=== PATIENT | female | born 1955 | race Caucasian/White ===

== ENCOUNTER → 2017-03-05 | Outpatient (CLI) | payer BC ==
[~2017-03-05] MED LIST: [UNRECOGNIZED DRUG - OTHER]
== END | disposition home or self-care (01) ==
LOC: C.PAPS 14:00
PROVIDERS: ATTEND Obstetrics & Gynecology
DX: Z01.419 Encounter for gynecological examination (general) (routine) without abnormal findings (principal)

== ENCOUNTER → 2017-03-11 | Outpatient (CLI) | payer BC ==
--- NOTE | 2017-03-12 13:37 | MAMMOGRAPHY REPORT ---
BILATERAL DIGITAL SCREENING MAMMOGRAM TOMOSYNTHESIS WITH CAD: 03/11/2017 CLINICAL HISTORY: Routine screening. Patient has no complaints. TECHNIQUE: Breast tomosynthesis in addition to standard 2D mammography was performed. Current study was also evaluated with a Computer Aided Detection (CAD) system. COMPARISON: Comparison is made to exams dated: 03/09/2016 mammogram, 01/29/2015 mammogram, 01/23/2014 mammogram, 01/16/2013 mammogram, 01/12/2012 mammogram, and 01/05/2011 mammogram - [facility]. BREAST COMPOSITION: The tissue of both breasts is heterogeneously dense, which may obscure small mas ses. FINDINGS: No suspicious masses, calcifications, or areas of architectural distortion are noted in ei ther breast. There has been no significant interval change compared to prior exams. A biopsy marker clip is again noted within the left upper outer quadrant. IMPRESSION: ACR BI-RADS CATEGORY 2: BENIGN There is no mammographic evidence of malignancy. A 1 year screening mammogram is recommended. The pa tient will receive written notification of the results. Approximately 10% of breast cancers are not detected with mammography. A negative mammographic report should not delay biopsy if a clinically suggestive mass is present. Nan Raymond M.D. ah/:03/11/2017 15:14:32 Adult Parole Officer: Rosy SPARKS)(Marcos), [facility] letter sent: Normal 1/2 BI-RADS Code: ACR BI-RADS Category 2: Benign
== END | disposition home or self-care (01) ==
LOC: C.MAMM 10:44
PROVIDERS: ATTEND Obstetrics & Gynecology
DX: Z12.31 Encounter for screening mammogram for malignant neoplasm of breast (principal)

== ENCOUNTER → 2017-07-22 | Day surgery (SDC) | payer OTHER ==
[~2017-07-22] VITALS: Ht 172.7 cm; Wt 59.0 kg
[~2017-07-22] MED LIST changes: +CALC500C70 PO; +COSYNTROPIN INJ 250 MCG in SYRINGE 0 ML IM SCH; +probiotic
[2017-07-22 08:05] VITALS: BP 124/85; PULSE 64; TEMP 36.8; O2SAT 98; Ht 172.7 cm; Wt 59.0 kg
== END | disposition home or self-care (01) ==
LOC: C.MTU 07:45
PROVIDERS: ATTEND Family Medicine
DX: E27.40 Unspecified adrenocortical insufficiency (principal)

== ENCOUNTER 2025-02-06 11:52 | Observation (INO) ==
[2025-02-06] MEDS: MoRPHine SULFATE 4 MG/ML 1 ML CARP\\VIAL IV STA ×2 (12:13→12:37)
--- NOTE | 2025-02-06 12:13 | Emergency Department Note ---
Impression & Plan Open fracture of right talus, Dislocation of right subtalar joint ED Provider Note NAME: VALENTINO ESPARZA AGE: 69 SEX: F : 1955 ARRIVES VIA: Ambulance INFORMANT: Patient ED PROVIDER(S): Joselito Dupree DO CHIEF COMPLAINT: Right foot pain HPI: Patient is a 69-year-old female who presents to the ER who rolled her right ankle. She has severe pain over the right lateral ankle. She notes her tetanus is up-to-date. She notes this occurred just prior to arrival. No head strike. No chest pain or shortness of breath. No nausea, vomiting, or diarrhea. ADDITIONAL HISTORY OBTAINED: Per HPI Chronic Medical/Social Conditions Affecting Care: Per HPI PAST MEDICAL HISTORY:See Below PAST SURGICAL HISTORY:See Below FAMILY HISTORY:See Below SOCIAL HISTORY:See Below HOME MEDICATIONS:See Below ALLERGIES:See Below VITALS:See Below PHYSICAL EXAMINATION: GENERAL: Sitting up in bed, alert, moderate distress EYE EXAM: normal conjunctiva. PERRL and EOM's grossly intact. OROPHARYNX: mucous membranes are moist NECK: supple, no nuchal rigidity, no adenopathy, non-tender LUNGS: Clear to auscultation. Normal chest wall mechanics HEART: no murmurs, S1 normal and S2 normal ABDOMEN: abdomen soft, non-tender, normo-active bowel sounds, no masses, no rebound or guarding. UPPER EXTREMITIES: upper extremities are grossly normal. LOWER EXTREMITIES: Flexion extension right hip and knee is intact. Obvious deformity of the right lateral foot with bone exposed just under skin tear. Bruising and swelling present. DP 2 out of 4. Gross station intact. NEURO EXAM: Normal sensorium, cranial nerves II-XII grossly intact, normal speech, no gross weakness of arms, no gross weakness of legs. MEDICAL DECISION MAKING: Patient is a 69-year-old female who presents ER following mechanical fall for right foot pain. On exam she has a clear open fracture of the right lateral foot which appear to be consistent with the talus as it was dislocated. Patient was neurovascularly intact on exam. Initially upon evaluation consulted orthopedics and podiatry. Podiatry Dr. Lucas at the most availability within his schedule and was able to present at bedside and took the patient emergently to the OR. Patient was given IV antibiotics which was IV Ancef in combination with multiple dose of IV morphine. The wound was covered with a moist 4 x 4. Patient was rechecked regularly while in the ER to make sure she was still neurovascularly intact as she remained this way until she was taken to the OR. Consults/Care Managements Discussions: Per [facility] Triage Nursing notes reviewed. Limited review of prior medical records performed Vital Signs: reviewed and remarkable for no significant abnormalities Differential diagnosis: Fracture, subluxation, dislocation, contusion, ligamentous injury, neurovascular, compartment syndrome, rhabdomyolysis, as well as other pathologies. ER treatment provided: See below Diagnostics interpreted by me include EKG and cardiac monitoring as listed below: -Cardiac Monitoring: An order was placed for continuous cardiac monitoring. The monitor shows a rate of 101 with sinus rhythm. -ECG: none -Laboratory studies:Interpreted by me as stated above in MDM and shown below. Imaging studies: Xrays: As interpreted by me: X-rays of the right foot show a likely talus navicular dislocation with a fracture of the fifth metacarpal CTs show: CT as described above Procedures:none Critical Care: None Past Med/Surg History Problem List (Updated 02/06/25 @ 15:49 by Lance Aguilar DPM) Open fracture of right talus Dislocation of right subtalar joint Family history of breast cancer MOM DX TWICE. FIRST AROUND 70/80'S SECOND 80/90'S Heterogeneously dense tissue of both breasts on mammography Excessive cerumen in both ear canals Cellulitis of left breast Medical History Neuropathy Surgical History H/O oral surgery H/O breast biopsy History of sinus surgery History of tonsillectomy Family History Mother Breast cancer Cancer Hearing loss Father Colorectal cancer Diabetes Hypertension Hearing loss Other No family history of allergies No family history of bleeding disorder Denies family history of Heart disease Stroke Asthma Social History Smoking Status: Never smoker Do You Dip or Chew Tobacco: No; Hx Alcohol Use: Yes Alcohol type: wine Hx Substance Use: No Preferred Language: Barbadian Communication Ability: Effective marital status: Current Living Situation: Spouse current occupational status: retired 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 @ [employer] How many Children do You have: 1 Feels Safe at Home: Yes Sunscreen Use: No Allergies Allergies Allergy/AdvReac Type Severity Reaction Status Date / Time No Known Drug Allergies Allergy Verified 02/06/25 15:24 Home Meds Home Medications Medication Instructions Recorded Confirmed duloxetine 30 mg capsule,delayed 60 mg PO DAILY 06/04/22 02/06/25 release metformin 500 mg tablet,extended 500 mg PO TID 06/04/22 02/06/25 release 24 hr alendronate 70 mg tablet See Rx Instructions PO .COMPLEX 08/28/22 02/06/25 alpha lipoic acid 300 mg capsule 300 mg PO BID 08/28/22 02/06/25 cholecalciferol (vitamin D3) 100 100 mcg PO DAILY 08/28/22 02/06/25 mcg (4,000 unit) tablet loratadine 10 mg tablet (Claritin) 10 mg PO DAILY PRN Allergic 06/18/23 02/06/25 Symptoms rosuvastatin 5 mg tablet 5 mg PO DAILY 01/18/24 02/06/25 lisinopril 2.5 mg tablet 2.5 mg PO DAILY 02/06/25 02/06/25 Previous Rx's Medication Instructions Recorded lactobacillus combination no.9 4 4,000 mmu cells PO DAILY #30 caps 10/31/18 billion cell capsule (Adult 50 Plus Probiotic) Results & Data (ED) Vital Signs Vital Signs - 24 hr 02/06/25 11:57 02/06/25 11:57 02/06/25 12:17 Temperature 36.6 C Temperature Source Temporal Artery Scan Pulse Rate 89 Pulse Rate [Apical] Respiratory Rate 18 18 Respiratory Effort / Characteristics Respiratory Depth Blood Pressure 99/86 L Blood Pressure [Left Arm] Blood Pressure Mean 90 Blood Pressure Mean [Left Arm] Pulse Oximetry 99 97 Oxygen Delivery Method Room Air Sepsis Recent Fever Within 48 Hours No Sepsis New/Unexplained Change in Mental Status N/A Sepsis Action Taken by Nursing No Action Required 02/06/25 15:25 Temperature 36.5 C Temperature Source Oral Pulse Rate Pulse Rate [Apical] 102 H Respiratory Rate 16 Respiratory Effort / Characteristics Non-Labored Spontaneous Respiratory Depth Normal Blood Pressure Blood Pressure [Left Arm] 138/94 Blood Pressure Mean Blood Pressure Mean [Left Arm] 108 Pulse Oximetry 96 Oxygen Delivery Method Room Air Sepsis Recent Fever Within 48 Hours Sepsis New/Unexplained Change in Mental Status Sepsis Action Taken by Nursing Laboratory Data 02/06/25 12:06 02/06/25 12:06 Lab Results 02/06/25 Range/Units 12:06 WBC 7.22 (4.8-10.8) K/ul RBC 3.77 L (4.20-5.40) M/uL Hgb 10.9 L (12.0-16.0) g/dl Hct 32.8 L (37.0-47.0) % MCV 87.0 (80.0-100.0) fL MCH 28.9 (25.0-34.0) pg MCHC 33.2 (32.0-36.0) g/dL RDW Std Deviation 47.2 H (36.4-46.3) fL RDW Coeff of Jennifer 14.8 H (11.5-14.5) % Plt Count 289 (130-400) K/uL MPV 10.7 (9.4-12.4) fL Immature Gran % (Auto) 0.6 % Neut % (Auto) 73.0 % Lymph % (Auto) 16.3 % Callahan % (Auto) 7.9 % Eos % (Auto) 1.8 % Baso % (Auto) 0.4 % Neut # (Auto) 5.27 (1.40-6.50) K/uL Lymph # (Auto) 1.18 L (1.20-3.40) K/uL Callahan # (Auto) 0.57 (0.11-0.59) K/uL Eos # (Auto) 0.13 (0.00-0.50) K/uL Baso # (Auto) 0.03 (0.00-0.20) K/uL Immature Gran # (Auto) 0.04 (0.01-0.20) K/uL Sodium 138 (136-145) mmol/L Potassium 4.8 (3.5-5.1) mmol/L Chloride 105 (98-107) mmol/L Carbon Dioxide 24 (21-32) mmol/L Anion Gap 9 (3-11) BUN 16 (6-23) mg/dl Creatinine 0.72 (0.6-1.2) mg/dl Est Cr Clr Drug Dosing 72.0 ml/min eGFR 91.02 BUN/Creatinine Ratio 22.2 H (10-20) Glucose 108 H (70-99(Fasting)) mg/dl Calcium 9.3 (8.6-10.3) mg/dl Total Bilirubin 0.3 (0.2-1.0) mg/dl AST 23 (13-39) U/L ALT 17 (7-52) U/L Alkaline Phosphatase 70 (34-104) U/L Total Protein 7.0 (6.0-8.3) gm/dl Albumin 4.1 (3.4-5.0) gm/dl Globulin 2.9 (2.5-4.0) gm/dl Albumin/Globulin Ratio 1.4 (0.9-2) Administered Medications Clindamycin Phosphate (Cleocin/D5w) 900 mg in 50 mls @ 100 mls/hr IV PREOP PILO Stop: 02/07/25 05:59 Last Admin: 02/06/25 16:15 Dose: 100 mls/hr Documented By: [id number] Discontinued Medications Bupivacaine HCl (Bupivacaine 0.5 % 5 Mg/1 Ml Mpf 30ml Vial) Confirm Administered Dose 30 ml .ROUTE .STK-MED ONE Stop: 02/06/25 15:43 Last Admin: 02/06/25 16:58 Dose: 30 ml Documented By: [id number] Clindamycin Phosphate (Clindamycin 900 Mg/D5w 50 Ml Bag) Confirm Administered Dose 900 mg IV .STK-MED ONE Stop: 02/06/25 16:16 Last Admin: 02/06/25 16:59 Dose: Not Given Documented By: CP Cefazolin Sodium 3,000 mg/ (Dextrose) 72.5 mls @ 145 mls/hr IV NOW STA Stop: 02/06/25 12:39 Last Infusion: 02/06/25 13:46 Dose: Infused Documented By: Admin: 02/06/25 12:28 Dose: 145 mls/hr Documented By: MORAIMA Morphine Sulfate (Morphine Sulfate 4 Mg/Ml 1 Ml Carp\Vial) 4 mg IV NOW STA Stop: 02/06/25 12:11 Last Admin: 02/06/25 12:13 Dose: 4 mg Documented By: PATRICIO Morphine Sulfate (Morphine Sulfate 4 Mg/Ml 1 Ml Carp\Vial) 4 mg IV NOW STA Stop: 02/06/25 12:35 Last Admin: 02/06/25 12:37 Dose: 4 mg Documented By: PATRICIO Morphine Sulfate (Morphine Sulfate 10 Mg/Ml Carp/Vial) 6 mg IV NOW STA Stop: 02/06/25 12:58 Last Admin: 02/06/25 13:01 Dose: 6 mg Documented By: MORAIMA Ondansetron HCl (Ondansetron Inj 2 Mg/Ml 2 Ml Vial) 4 mg IV NOW STA Stop: 02/06/25 13:21 Last Admin: 02/06/25 13:27 Dose: 4 mg Documented By: MORAIMA Imaging Data Radiologist's Impression: Ankle X-Ray 02/06/25 12:00 XR ankle RT min 3V routine, XR foot RT min 3V routine CLINICAL HISTORY: ankle pain COMPARISON: None FINDINGS: Skin fold artifact overlies the distal tibia. There is medial dislocation of the joint between the talus and navicular. There is a possible nondisplaced fracture at the medial navicular. There is an acute mildly displaced mildly comminuted oblique fracture distally at the fifth metatarsal. No other fracture seen at the right ankle or right foot. IMPRESSION: 1. Dislocation of the joint between the talus and the navicular. 2. Possible nondisplaced fracture at the navicular. 3. Fractured distally at the fifth metatarsal. ACT 112: Negative or not required by law. Electronically signed by: Navid Garnica M.D. 02/06/2025 12:26 PM Foot X-Ray 02/06/25 12:03 XR ankle RT min 3V routine, XR foot RT min 3V routine CLINICAL HISTORY: ankle pain COMPARISON: None FINDINGS: Skin fold artifact overlies the distal tibia. There is medial dislocation of the joint between the talus and navicular. There is a possible nondisplaced fracture at the medial navicular. There is an acute mildly displaced mildly comminuted oblique fracture distally at the fifth metatarsal. No other fracture seen at the right ankle or right foot. IMPRESSION: 1. Dislocation of the joint between the talus and the navicular. 2. Possible nondisplaced fracture at the navicular. 3. Fractured distally at the fifth metatarsal. ACT 112: Negative or not required by law. Electronically signed by: Navid Garnica M.D. 02/06/2025 12:[address] 02/06/25 12:13 CT SCAN OF THE RIGHT FOOT WITHOUT IV CONTRAST CLINICAL HISTORY: Right foot fractures. COMPARISON STUDY: Right foot x-rays dated 02/06/2025. TECHNIQUE: CT scan of the right foot is performed from the ankle joint space of the foot. Images are reviewed in the axial, sagittal, and coronal planes. IV contrast was not administered for this examination. 3-D reformats are created and assessed. A dose lowering technique was utilized adhering to the principles of ALARA. CT DOSE: 513.32 mGy.cm FINDINGS: The skeletal structures are osteopenic. There is a displaced and mildly angulated fracture through the distal shaft/neck of the fifth metatarsal. The distal tibia and distal fibula appear intact. There is anterior subluxation of the talus at the tibiotalar/tibiofibular joints. There is a comminuted and displaced posterior process fracture of the talus. The distracted fragment is best seen on axial image #146 and measures 1.5 cm. Comminuted fracture is also seen along the inferior posteromedial cortex of the talus on axial image #184. There is medial dislocation of the navicular at the talonavicular articulation, with associated lateral offset of the anterior talus. There is comminuted fracture seen through the medial cortex of the navicular on axial image #229. There is a comminuted anterior process fracture of the calcaneus which is best seen on sagittal image #72. No additional acute fracture is clearly identified. There is no CT evidence of Lisfranc injury. Soft tissue edema/hemorrhage overlies the fracture sites. The Achilles tendon is intact as visualized by CT. No soft tissue gas is seen throughout the foot. IMPRESSION: 1. There is medial dislocation of the navicular at the talonavicular articulation. This causes lateral displacement of the anterior talus. 2. There is comminuted fracture through the medial aspect of the navicular. 3. Comminuted and displaced posterior process fracture the talus. There is also fracture through the inferior aspect of the posteromedial talar cortex. 4. Comminuted anterior process fracture of the calcaneus. 5. Mildly displaced and angulated fracture through the distal shaft/neck of the fifth metatarsal. 6. There is anterior subluxation of the talus at the tibiotalar/talofibular joints. 7. Emergent orthopedic evaluation is recommended. ACT 112: Negative or not required by law. Electronically signed by: Han Ibrahim M.D. 02/06/2025 1:09 PM Discharge Plan Visit Data Chief Complaint: Ankle Pain Stated Complaint: rt ankle inj ED Provider: Joselito Dupree Patient Disposition: Admitted As Inpatient Discharge Instructions Interventions: ED Discharge Assessment Last Done: 02/06/25 14:44 Forms Stand Alone Forms: My [facility] [place] Prescriptions Prescriptions: No Action duloxetine 30 mg capsule,delayed release(DR/EC) 60 mg PO DAILY metformin 500 mg tablet extended release 24 hr 500 mg PO TID Adult 50 Plus Probiotic 4 billion cell capsule 4,000 mmu cells PO DAILY Qty: 30 0RF Rx Instructions: administer with a meal alpha lipoic acid 300 mg capsule 300 mg PO BID alendronate 70 mg tablet See Rx Instructions PO .COMPLEX Rx Instructions: orally once weekly; cholecalciferol (vitamin D3) 100 mcg (4,000 unit) tablet 100 mcg PO DAILY loratadine [Claritin] 10 mg tablet 10 mg PO DAILY PRN (Reason: Allergic Symptoms) rosuvastatin 5 mg tablet 5 mg PO DAILY lisinopril 2.5 mg tablet 2.5 mg PO DAILY Referrals Referrals: Sadie Corona DO [Primary Care Provider] - Discharge Problem:
--- NOTE | 2025-02-06 12:27 | XRay Report ---
XR ankle RT min 3V routine, XR foot RT min 3V routine CLINICAL HISTORY: ankle pain COMPARISON: None FINDINGS: Skin fold artifact overlies the distal tibia. There is medial dislocation of the joint bet ween the talus and navicular. There is a possible nondisplaced fracture at the medial navicular. Ther e is an acute mildly displaced mildly comminuted oblique fracture distally at the fifth metatarsal. N o other fracture seen at the right ankle or right foot. IMPRESSION: 1. Dislocation of the joint between the talus and the navicular. 2. Possible nondisplaced fracture at the navicular. 3. Fractured distally at the fifth metatarsal. ACT 112: Negative or not required by law. Electronically signed by: Navid Garnica M.D. 02/06/2025 12:26 PM
[2025-02-06 12:32] LABS: Hematocrit (blood only) 32.8 % (37.0-47.0); Hemoglobin 10.9 g/dl (12.0-16.0); Immature Granulocytes # (auto) 0.04 K/uL (0.01-0.20); Immature Granulocytes % (auto) 0.6 %; Mean Corpuscular Hemoglobin 28.9 pg (25.0-34.0); Mean Corpuscular Volume 87.0 fL (80.0-100.0); Platelet Count 289 K/uL (130-400); RDW Standard Deviation 47.2 fL (36.4-46.3); Red Blood Count 3.77 M/uL (4.20-5.40); White Blood Count 7.22 K/ul (4.8-10.8)
[2025-02-06 12:52] LABS: Alanine Aminotransferase 17.0 U/L (7-52); Albumin Globulin Ratio 1.4 (0.9-2); Albumin Level 4.1 gm/dl (3.4-5.0); Alkaline Phosphatase 70.0 U/L (34-104); Anion Gap 9.0 (3-11); Bilirubin,Total 0.3 mg/dl (0.2-1.0); Blood Urea Nitrogen 16.0 mg/dl (6-23); Calcium 9.3 mg/dl (8.6-10.3); Carbon Dioxide 24.0 mmol/L (21-32); Chloride 105.0 mmol/L (98-107); Creatinine Clr Calc Pharmacy 72.0 ml/min; Globulin 2.9 gm/dl (2.5-4.0); Glucose 108.0 mg/dl (70-99(Fasting)); Potassium 4.8 mmol/L (3.5-5.1); Sodium 138.0 mmol/L (136-145); Total Protein 7.0 gm/dl (6.0-8.3)
[2025-02-06] MEDS: MoRPHine SULFATE 10 MG/ML CARP/VIAL IV STA (13:01)
--- NOTE | 2025-02-06 13:11 | CT Scan Report ---
CT SCAN OF THE RIGHT FOOT WITHOUT IV CONTRAST CLINICAL HISTORY: Right foot fractures. COMPARISON STUDY: Right foot x-rays dated 02/06/2025. TECHNIQUE: CT scan of the right foot is performed from the ankle joint space of the foot. Images are reviewed in the axial, sagittal, and coronal planes. IV contrast was not administered for this exami nation. 3-D reformats are created and assessed. A dose lowering technique was utilized adhering to th e principles of ALARA. CT DOSE: 513.32 mGy.cm FINDINGS: The skeletal structures are osteopenic. There is a displaced and mildly angulated fracture through the distal shaft/neck of the fifth metatarsal. The distal tibia and distal fibula appear inta ct. There is anterior subluxation of the talus at the tibiotalar/tibiofibular joints. There is a comm inuted and displaced posterior process fracture of the talus. The distracted fragment is best seen on axial image #146 and measures 1.5 cm. Comminuted fracture is also seen along the inferior posteromed ial cortex of the talus on axial image #184. There is medial dislocation of the navicular at the talo navicular articulation, with associated lateral offset of the anterior talus. There is comminuted fra cture seen through the medial cortex of the navicular on axial image #229. There is a comminuted ante rior process fracture of the calcaneus which is best seen on sagittal image #72. No additional acute fracture is clearly identified. There is no CT evidence of Lisfranc injury. Soft tissue edema/hemorrh age overlies the fracture sites. The Achilles tendon is intact as visualized by CT. No soft tissue ga s is seen throughout the foot. IMPRESSION: 1. There is medial dislocation of the navicular at the talonavicular articulation. This causes latera l displacement of the anterior talus. 2. There is comminuted fracture through the medial aspect of the navicular. 3. Comminuted and displaced posterior process fracture the talus. There is also fracture through the inferior aspect of the posteromedial talar cortex. 4. Comminuted anterior process fracture of the calcaneus. 5. Mildly displaced and angulated fracture through the distal shaft/neck of the fifth metatarsal. 6. There is anterior subluxation of the talus at the tibiotalar/talofibular joints. 7. Emergent orthopedic evaluation is recommended. ACT 112: Negative or not required by law. Electronically signed by: Han Ibrahim M.D. 02/06/2025 1:09 PM
[2025-02-06] MEDS: ONDANSETRON INJ 2 MG/ML 2 ML VIAL IV STA (13:27)
--- NOTE | 2025-02-06 14:04 | Podiatry Consultation ---
Date of Consultation February 06, 2025 Assessment & Plan (1) Dislocation of right subtalar joint: Encounter type: initial encounter Qualified Code(s): S93.314A - Dislocation of tarsal joint of right foot, initial encounter (2) Open fracture of right talus: Encounter type: initial encounter Talus location: body Fracture alignment: displaced Qualified Code(s): S92.121B - Displaced fracture of body of right talus, initial encounter for open fracture Plan Patient was examined and evaluated perioperatively. We discussed at length etiology and treatment of this right foot fracture dislocation. We discussed that this would best be treated initially with an open reduction and washout due to the open nature of the fracture. She will require more definitive care in the future, likely with internal fixation for the talar fracture. This can better be visualized once it is more realigned with CT and MR imaging. For now, we will admit her overnight at least to ensure her pain is controlled and that she is not developing any acute evidence of infection. Patient understands and was consented for this procedure. All questions were answered. Preoperative instructions, postop instructions, relative risks, and outcomes and goals were all discussed. She is amenable with this plan and will proceed with surgery. History of Present Illness Reason for Consultation: Right foot fractures/dislocations History of Present Illness Patient presents to [facility] ED for evaluation and treatment of right foot/ankle trauma. She states that she misstepped off a step and twisted her foot and ankle underneath her. She has not had similar injuries in the past but does have a history of osteoporosis. She denies any other significant falls or traumas. She also denies any new or worsening signs or symptoms of infection [place] any loss of consciousness or head trauma at the time of the fall. Allergies Allergy/AdvReac Type Severity Reaction Status Date / Time No Known Drug Allergies Allergy Verified 02/06/25 15:24 Home Medications Medication Instructions Recorded Confirmed Type lactobacillus combination no.9 4 4,000 mmu cells PO DAILY #30 caps 10/31/18 02/06/25 Rx billion cell capsule (Adult 50 Plus Probiotic) duloxetine 30 mg capsule,delayed 60 mg PO DAILY 06/04/22 02/06/25 History release metformin 500 mg tablet,extended 500 mg PO TID 06/04/22 02/06/25 History release 24 hr alendronate 70 mg tablet See Rx Instructions PO .COMPLEX 08/28/22 02/06/25 History alpha lipoic acid 300 mg capsule 300 mg PO BID 08/28/22 02/06/25 History cholecalciferol (vitamin D3) 100 100 mcg PO DAILY 08/28/22 02/06/25 History mcg (4,000 unit) tablet loratadine 10 mg tablet (Claritin) 10 mg PO DAILY PRN Allergic 06/18/23 02/06/25 History Symptoms rosuvastatin 5 mg tablet 5 mg PO DAILY 01/18/24 02/06/25 History lisinopril 2.5 mg tablet 2.5 mg PO DAILY 02/06/25 02/06/25 History Patient History Medical History Neuropathy Surgical History H/O oral surgery H/O breast biopsy History of sinus surgery History of tonsillectomy Family History Mother Breast cancer Cancer Hearing loss Father Colorectal cancer Diabetes Hypertension Hearing loss Other No family history of allergies No family history of bleeding disorder Denies family history of Heart disease Stroke Asthma Social History Smoking Status: Never smoker Do You Dip or Chew Tobacco: No; Hx Alcohol Use: Yes Alcohol type: wine Hx Substance Use: No Preferred Language: Micronesian Communication Ability: Effective marital status: Current Living Situation: Spouse current occupational status: retired 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 @ [employer] How many Children do You have: 1 Feels Safe at Home: Yes Sunscreen Use: No Review of Systems Review of Systems: All systems reviewed & are unremarkable except as noted in HPI & below Constitutional: no fever, no chills and no fatigue Eyes: no problem reported Ear, Nose, Mouth, Throat: no problem reported Respiratory: no problem reported Cardiovascular: + edema; no problem reported Gastrointestinal: + nausea; no vomiting and no problem rep orted Genitourinary: no problem reported Musculoskeletal: + deformity and + limited range of motio n; no problem reported Integumentary: + wounds Neurologic: + loss of sensation, + numbness and + pa resthesia; no generalized weakness Psychiatric: no problem reported Physical Exam Physical Exam: Right lower extremity focused exam: DP/PT pulses 2/4. CFT is brisk to the digits. Foot is inverted rigidly at the subtalar and talonavicular joint, consistent with CT findings of subtalar and talonavicular joint dislocation. There is pain on palpation of the foot. There is an overlying laceration to the dorsal lateral aspect of the foot which is directly communicating with the talar head. No active bleeding or drainage is noted. No focal areas of necrosis due to the pressure are noted.There is subjective numbness in the area. Constitutional: WD/WN, vitals as above + ill appearing and + obese Eyes: PERRL, conjunctivae normal, anicteric sclerae ENMT: external ear and nose normal, oropharynx normal Neck: trachea midline, no thyromegaly normal visual inspection Respiratory: normal respiratory effort; no respiratory distress Cardiovascular: Rate/Rhythm: regular rate and regular rhythm Vessels: posterior tibial pulses present and dorsalis pedis pulses present Chest (Breasts): Chest: normal inspection of chest Gastrointestinal (Abdomen): Inspection/Auscultation: abdomen normal to inspection Percussion/Palpation: + abdomen tender and abdomen soft Musculoskeletal: no cyanosis or clubbing, extremities motor strength 5/5 Head/Neck/Chest: normocephalic and head atraumatic Extremities: extremities normal to inspection Ankle: + deformity (Inversion and slight plantarflexion of the foot are noted, At the STJ) Neurologic: awake; no focal motor deficits Psychiatric: A+Ox3, euthymic affect Results & Data Vital Signs (Past 12 Hours) Vital Signs Temp Pulse Resp BP Pulse Ox O2 Del Method 02/06/25 12:17 97 Room Air 02/06/25 11:57 18 02/06/25 11:57 36.6 C 89 18 99/86 L 99
[2025-02-06] MEDS ORDERED: DEXAMETHASONE SOD INJ 4 MG/ML VIAL ONE (15:01)
[2025-02-06] MEDS ORDERED: MIDAZOLAM HCL 1 MG/ML 2ML VIAL ONE (15:02)
[2025-02-06] MEDS ORDERED: PROPOFOL IV EMULSION 10 MG/ML 20 ML VIAL IV ONE (15:02)
[2025-02-06] MEDS ORDERED: LIDOCAINE 2% 2 ML VIAL/AMP(20MG/ML) INFIL ONE (15:02)
[2025-02-06] MEDS ORDERED: ONDANSETRON INJ 2 MG/ML 2 ML VIAL ONE (15:02)
[2025-02-06] MEDS ORDERED: ROCURONIUM BROMIDE 10 MG/ML 5 ML VIAL IV ONE (15:02)
[2025-02-06] MEDS ORDERED: SUGAMMADEX SODIUM 200 MG/2 ML VIAL IV ONE (15:02)
[2025-02-06] MEDS ORDERED: GLYCOPYRROLATE 0.2 MG/ML VIAL ONE (15:02)
--- NOTE | 2025-02-06 15:18 | Anesthesiology Consultation ---
Date of Service February 06, 2025 Assessment & Plan Chart Review Chart Review: Acceptable Risk for Surgery and Patient NOT seen in Pre Admission Testing Consults Requested none History Surgery Operation Date: 02/06/25 15:25 Proposed Procedures p Right Washout Open Subtalar Joint Dislocation - Lance Aguilar DPM Height/Weight Height: 5 ft 8 in Weight: 61 kg Allergies Allergy/AdvReac Type Severity Reaction Status Date / Time No Known Drug Allergies Allergy Verified 10/12/24 10:42 Medications Home Medications Medication Instructions Recorded Confirmed Last Taken lactobacillus combination no.9 4 4,000 mmu cells PO DAILY #30 caps 10/31/18 02/06/25 Unknown billion cell capsule (Adult 50 Plus Probiotic) duloxetine 30 mg capsule,delayed 60 mg PO DAILY 06/04/22 02/06/25 Unknown release metformin 500 mg tablet,extended 500 mg PO TID 06/04/22 02/06/25 Unknown release 24 hr alendronate 70 mg tablet See Rx Instructions PO .COMPLEX 08/28/22 02/06/25 Unknown alpha lipoic acid 300 mg capsule 300 mg PO BID 08/28/22 02/06/25 Unknown cholecalciferol (vitamin D3) 100 100 mcg PO DAILY 08/28/22 02/06/25 Unknown mcg (4,000 unit) tablet loratadine 10 mg tablet (Claritin) 10 mg PO DAILY PRN Allergic 06/18/23 02/06/25 Unknown Symptoms rosuvastatin 5 mg tablet 5 mg PO DAILY 01/18/24 02/06/25 Unknown lisinopril 2.5 mg tablet 2.5 mg PO DAILY 02/06/25 02/06/25 Unknown Past Medical History Medical History Neuropathy Past Family History Family History Mother Breast cancer Cancer Hearing loss Father Colorectal cancer Diabetes Hypertension Hearing loss Other No family history of allergies No family history of bleeding disorder Denies family history of Heart disease Stroke Asthma Past Surgical History Surgical History H/O oral surgery H/O breast biopsy History of sinus surgery History of tonsillectomy Social History Smoking Status: Never smoker Do You Dip or Chew Tobacco: No Hx Alcohol Use: Yes Alcohol type: wine Hx Substance Use: No Physical Exam Vital Signs Last Vital Signs Temp 36.6 C 02/06/25 11:57 Pulse 89 02/06/25 11:57 Resp 18 02/06/25 11:57 BP 99/86 L 02/06/25 11:57 Pulse Ox 97 02/06/25 12:17 O2 Del Method Room Air 02/06/25 12:17 Testing Laboratory Results 02/06/25 12:06 02/06/25 12:06
[2025-02-06] MEDS ORDERED: ONDANSETRON INJ 2 MG/ML 2 ML VIAL IV PRN (15:42)
[2025-02-06] MEDS ORDERED: ATROPINE SULFATE 0.1 MG/ML 10ML SYR IV PRN (15:42)
[2025-02-06] MEDS: CLINDAMYCIN/D5W 900 MG/50 ML BAG IV SCH (16:15)
[2025-02-06] MEDS: BUPIVACAINE 0.5 % 5 MG/1 ML MPF 30ML VIAL ONE (16:58)
[2025-02-06] MEDS: CLINDAMYCIN 900 MG/D5W 50 ML BAG IV ONE (16:59)
--- NOTE | 2025-02-06 17:06 | Post Operative Brief Note ---
Immediate Post Op Note Date of Surgery February 06, 2025 Pre & Post Diagnosis Preoperative diagnosis: Right foot subtalar joint dislocation/talar body fracture Postoperative diagnosis: Same I identified the patient and participated in the time-out.: Yes Procedure 1. Open reduction of subtalar joint dislocation 2. Washout of open subtalar joint dislocation/talar fracture Surgeon Lance Aguilar, JUSTOM Cushion Mat Maker None Estimated Blood Loss 10 Findings Consistent with Post-Op Diagnosis Drains Gill Catheter Complications none Disposition Accompanied Patient To Recovery: Yes Disposition: Recovery Room
--- NOTE | 2025-02-06 18:36 | History & Physical Report ---
Date of Service February 06, 2025 Assessment & Plan (1) Open fracture of right talus: Plan: Assessment: 1. Traumatic injuries of the right foot including open talar fracture with dislocation excetra. Please refer to the CAT scan report and operative report. She is status postop day 0 today from reduction of dislocation and ORIF of the fractures per orthopedics. 2. Status post fall. In addition to her right foot pain she complains of right shoulder and elbow and arm pain. Patient denies any other pain. She denies hitting her head. This was a mechanical fall missing the last step coming down a flight of stairs. 3. Right arm pain status post fall. She has pain in her shoulder elbow and arm. X-rays of the right upper extremity had been ordered. They are pending at the time of this dictation and need followed up on to rule out acute orthopedic injury of the upper extremity. 4. Diabetes mellitus type 2. Hemoglobin A1c ordered. We will do Accu-Cheks and be notified if less than 80 or greater than 180 and if so introduce a sliding scale as appropriate. 5. Hypertension. Continue home meds as appropriate. 6. Dyslipidemia. Continue home meds as appropriate. 7. Depression. Continue Cymbalta. 8. Osteoporosis. On alendronate at home. Continue upon discharge unless otherwise directed by podiatry. Plan: As discussed above. Please refer to orders for further planning. History of Present Illness Chief Complaint: Acute dislocation of the navicular talonavicular joint with acute comminuted fracture through the medial aspect of the navicular with a displaced posterior process fracture of the talus on the right. This is status post mechanical fall. Primary Care Provider: Sadie Corona DO This is a pleasant 69-year-old female who was on [facility] today at the [facility] the parking deck. She was coming down the steps. She did not see the last step and over stepped and fell to the ground. Complaining of significant right foot pain was brought to the ER for further evaluation and treatment. CT of the foot demonstrated the above injuries. Emergent consultation with podiatry took place. The patient was taken straight to the OR for reduction of dislocation and reduction of fractures. We were contacted podiatry to entertain admission at least for overnight for observation given the postoperative nature of the patient. In the ER she also had ankle x-rays. She denies hitting her head. The only other pain she has in her is in her right shoulder her right elbow and right arm. We have ordered x-rays of these regions at the time of this dictation. We evaluated the patient in the PACU postoperatively. Again we were not notified of this patient preoperatively/in the ER. Allergies Allergy/AdvReac Type Severity Reaction Status Date / Time No Known Drug Allergies Allergy Verified 02/06/25 15:24 Home Medications Medication Instructions Recorded Confirmed Type lactobacillus combination no.9 4 4,000 mmu cells PO DAILY #30 caps 10/31/18 02/06/25 Rx billion cell capsule (Adult 50 Plus Probiotic) duloxetine 30 mg capsule,delayed 60 mg PO DAILY 06/04/22 02/06/25 History release metformin 500 mg tablet,extended 500 mg PO TID 06/04/22 02/06/25 History release 24 hr alendronate 70 mg tablet See Rx Instructions PO .COMPLEX 08/28/22 02/06/25 History alpha lipoic acid 300 mg capsule 300 mg PO BID 08/28/22 02/06/25 History cholecalciferol (vitamin D3) 100 100 mcg PO DAILY 08/28/22 02/06/25 History mcg (4,000 unit) tablet loratadine 10 mg tablet (Claritin) 10 mg PO DAILY PRN Allergic 06/18/23 02/06/25 History Symptoms rosuvastatin 5 mg tablet 5 mg PO DAILY 01/18/24 02/06/25 History lisinopril 2.5 mg tablet 2.5 mg PO DAILY 02/06/25 02/06/25 History Past Med/Surg History Problem List (Updated 02/06/25 @ 15:49 by Lance Aguilar DPM) Open fracture of right talus Dislocation of right subtalar joint Family history of breast cancer MOM DX TWICE. FIRST AROUND 70/80'S SECOND 80/90'S Heterogeneously dense tissue of both breasts on mammography Excessive cerumen in both ear canals Cellulitis of left breast Medical History Neuropathy Surgical History H/O oral surgery H/O breast biopsy History of sinus surgery History of tonsillectomy Family History Mother Breast cancer Cancer Hearing loss Father Colorectal cancer Diabetes Hypertension Hearing loss Other No family history of allergies No family history of bleeding disorder Denies family history of Heart disease Stroke Asthma Social History Smoking Status: Never smoker Do You Dip or Chew Tobacco: No; Hx Alcohol Use: Yes Alcohol type: wine Hx Substance Use: No Preferred Language: Khmer Communication Ability: Effective marital status: Current Living Situation: Spouse current occupational status: retired 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 Physical Exam Physical Exam: In General: In general this is a pleasant 69-year-old female who is alert and oriented x 3. She has a sore throat from the ET tube and is coughing somewhat postoperatively but otherwise interacts appropriately and pleasantly. HEENT: Normocephalic atraumatic pupils are equal round and reactive to light bilaterally. No scleral icterus no conjunctival injection external auditory canals are patent septum is in the midline nose is without discharge oral mucosa is pink and dry without lesion. NECK: Supple no rigidity no lymphadenopathy no thyromegaly no carotid bruits no JVD no masses. HEART: Regular rate and rhythm I do not appreciate any ectopy or rub. No murmur. LUNGS: Clear to auscultation bilaterally and anteriorly with no evidence of adventitious sounds/wheezes rales or rhonchi. ABDOMEN: Soft nontender, no rebound, no peritoneal signs, positive bowel sounds, no appreciable organomegaly. EXTREMITIES: Intact. Lower extremities are postoperatively neurovascularly intact. Right upper extremity she has pain in her right shoulder and right elbow and right upper arm. There is no obvious defect on inspection. We will x-ray these. NEUROLOGICAL: Cranial nerves II through XII are grossly intact with no focal deficit elicited upon examination. Results & Data Results & Data Vital Signs (Past 12 Hours) Vital Signs Temp Pulse Pulse Resp BP BP Pulse Ox 02/06/25 18:15 107 H 14 138/95 95 02/06/25 18:00 104 H 14 137/95 97 02/06/25 17:45 36.5 C 110 H 20 137/93 94 02/06/25 17:35 108 H 12 144/90 H 94 02/06/25 17:25 106 H 16 133/92 94 02/06/25 17:15 36.1 C L 117 H 16 160/71 H 95 02/06/25 15:25 36.5 C 102 H 16 138/94 96 02/06/25 12:17 97 02/06/25 11:57 18 02/06/25 11:57 36.6 C 89 18 99/86 L 99 O2 Del Method O2 Flow Rate 02/06/25 18:15 Nasal Cannula 2 02/06/25 18:00 Nasal Cannula 2 02/06/25 17:45 Nasal Cannula 2 02/06/25 17:35 Oxymask 3 02/06/25 17:25 Oxymask 6 02/06/25 17:15 Oxymask 6 02/06/25 15:25 Room Air 02/06/25 12:17 Room Air 02/06/25 11:57 02/06/25 11:57 Code Status & VTE Plan Code Status Full code. I personally discussed with patient at the bedside. VTE Prophylaxis Plan VTE Prophylaxis will be ordered: Yes PG Care Time/CCT Total # of Minutes Spent Total Time Spent with Patient: Total time spent is greater than 50% in coordination of care (as documented) at patient's floor/unit and/or counseling patient: Coding Level of Care Code 69271 INT INP/OBS CARE 375MIN Diagnoses Open displaced fracture of body of right talus, initial encounter S92.121B Encounter type: initial encounter Talus location: body Fracture alignment: displaced (1) Open fracture of right talus Encounter type: initial encounter Talus location: body Fracture alignment: displaced Qualified Code(s): S92.121B - Displaced fracture of body of right talus, initial encounter for open fracture
--- NOTE | 2025-02-06 19:09 | Anesthesiology Progress Note ---
Date of Service February 06, 2025 Anesthesia Post Procedure Vital Signs Vital Signs: Temp Pulse Pulse Resp BP BP Pulse Ox 02/06/25 18:42 36.5 C 110 H 16 142/91 H 97 02/06/25 18:31 36.6 C 110 H 16 138/88 94 02/06/25 18:15 107 H 14 138/95 95 02/06/25 18:00 104 H 14 137/95 97 02/06/25 17:45 36.5 C 110 H 20 137/93 94 02/06/25 17:35 108 H 12 144/90 H 94 02/06/25 17:25 106 H 16 133/92 94 02/06/25 17:15 36.1 C L 117 H 16 160/71 H 95 02/06/25 15:25 36.5 C 102 H 16 138/94 96 02/06/25 12:17 97 02/06/25 11:57 18 02/06/25 11:57 36.6 C 89 18 99/86 L 99 O2 Del Method O2 Flow Rate 02/06/25 18:42 Room Air 02/06/25 18:31 Room Air 02/06/25 18:15 Nasal Cannula 2 02/06/25 18:00 Nasal Cannula 2 02/06/25 17:45 Nasal Cannula 2 02/06/25 17:35 Oxymask 3 02/06/25 17:25 Oxymask 6 02/06/25 17:15 Oxymask 6 02/06/25 15:25 Room Air 02/06/25 12:17 Room Air 02/06/25 11:57 02/06/25 11:57 Pain Intensity Right Leg: Pain Intensity: 10 Transfer of Care Handoff Completed per policy Notes Mental Status: alert / awake / arousable and participated in evaluation Patient Amnestic to Procedure: Yes Nausea / Vomiting: adequately controlled Pain: adequately controlled Airway Patency, RR, SpO2: stable & adequate BP & HR: stable & adequate Hydration State: stable & adequate Anesthetic Complications: no major complications apparent and Pt Satisfied with anesthetic care
[2025-02-06] MEDS ORDERED: LORATADINE 10 MG TAB PO PRN (19:16)
--- NOTE | 2025-02-06 20:02 | XRay Report ---
History: Pain Comparison: None Findings: There is no acute fracture or dislocation. Alignment is anatomic. Joint spaces are well maintained. There is no joint effusion or significant soft tissue swelling. Impression: No acute bony abnormality Electronically signed by Nain Garnica 02-06-2025 8:00 PM
--- NOTE | 2025-02-06 22:58 | CT Scan Report ---
Exam(s): CT RIGHT FOOT Without Contrast EXAM: CT Right Lower Extremity Without Intravenous Contrast, Foot CLINICAL HISTORY: Reason for exam: Post STJ Reduction. TECHNIQUE: Axial computed tomography images of the right foot without intravenous contrast. CTDI is 24.91 mGy and DLP is 459.39 mGy-cm. Automated exposure control was utilized for the study. A dose lowering technique was utilized adhering to the principles of ALARA. COMPARISON: CT February 06. FINDINGS: Bones/joints: Chip fracture off of the posterior talus. Chip fracture of the far anterolateral calcaneus. Nondisplaced fracture of the navicular. Fracture of the fifth metatarsal neck. Normal alignment at the Lisfranc ligament. Soft tissues: Anatomic alignment status post subtalar reduction. Dorsal soft tissue wound with subcutaneous gas, edema, and a small amount of radiopaque debris. Soft tissue edema in the ankle and hindfoot. IMPRESSION: 1. Anatomic alignment status post subtalar reduction. 2. Chip fracture off of the posterior talus. 3. Chip fracture of the far anterolateral calcaneus. 4. Nondisplaced fracture of the navicular. 5. Fracture of the fifth metatarsal neck. Electronically signed by: Mt Bullock MD 02/06/25 22:57 PM
[2025-02-07] MEDS: ONDANSETRON INJ 2 MG/ML 2 ML VIAL IV PRN (01:55)
[2025-02-07] MEDS: ACETAMINOPHEN 325 MG TAB PO PRN (06:45)
[2025-02-07 07:21] LABS: Hematocrit (blood only) 28.7 % (37.0-47.0); Hemoglobin 9.7 g/dl (12.0-16.0); Mean Corpuscular Hemoglobin 29.0 pg (25.0-34.0); Mean Corpuscular Volume 85.7 fL (80.0-100.0); Platelet Count 254 K/uL (130-400); RDW Standard Deviation 44.9 fL (36.4-46.3); Red Blood Count 3.35 M/uL (4.20-5.40); White Blood Count 14.97 K/ul (4.8-10.8)
[2025-02-07 07:41] LABS: Hemoglobin A1C 7.0 % (4.5-5.6)
[2025-02-07 07:46] LABS: Immature Granulocytes # (auto) 0.11 K/uL (0.01-0.20); Immature Granulocytes % (auto) 0.7 %
--- NOTE | 2025-02-07 07:56 | Hospitalist Progress Note ---
Date of Service February 07, 2025 Assessment & Plan (1) Open fracture of right talus: (2) Dislocation of right subtalar joint: (3) Neutrophilic leukocytosis: (4) Hyponatremia with decreased serum osmolality: (5) Type 2 diabetes mellitus with hyperglycemia: (6) Hypomagnesemia: Plan In summary this is a 69-year-old female who presents after a mechanical fall resulting in right talar open fracture with dislocation of the subtalar joint who underwent open reduction and washout with podiatry on 02/06 emergently #Subtalar dislocation with open fracture of right talus s/p open reduction and washout on 01/06 / Osteoporosis Undefined surgical plan at this time pending podiatry evaluation and recommendations postoperatively; the patient's leukocytosis is most likely reactive from her injury and surgery rather than indicative of an underlying infectious process given the absence of any constitutional symptoms Start acetaminophen 1000 mg IV every 8 hours scheduled for 24 hours, transition to p.o. 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 consequential of significant pain and postoperative discomfort -Intake and output measure every shift -Follow daily RFP and Magnesium -No indication for fluid restriction at this time #Type II Diabetes mellitus with hyperglycemia Most recent hemoglobin A1c of 7.0% obtained 02/07; glycemic target of preprandial less than 140 and random checks less than 180; we will withhold the patient's home medication regimen during hospitalization - Start insulin glargine 6 U subcutaneously twice daily - Start insulin aspart with correction factor 75 mg/dL/unit and carbohydrate ratio 24 g/unit Admission and Anticipated Discharge Date Admission Date: February 06, 2025 Results & Data Results & Data Vital Signs (Past 12 Hours) Vital Signs Temp Pulse Pulse Resp BP Pulse Ox O2 Del Method 02/07/25 07:33 98 H 02/07/25 01:53 36.9 C 104 H 18 144/87 H 94 Room Air 02/06/25 22:23 36.8 C 113 H 16 126/79 97 Nasal Cannula 02/06/25 21:54 107 H 02/06/25 21:45 36.5 C 113 H 18 136/83 96 Nasal Cannula O2 Flow Rate 02/07/25 07:33 02/07/25 01:53 02/06/25 22:23 2 02/06/25 21:54 02/06/25 21:45 2 PG Care Time/CCT Total # of Minutes Spent Total Time Spent with Patient: Total time spent is greater than 50% in coordination of care (as documented) at patient's floor/unit and/or counseling patient: Coding Level of Care Code 47950 SUB INP/OBS CARE 2MIN Diagnoses Open displaced fracture of body of right talus, initial encounter S92.121B Encounter type: initial encounter Fracture alignment: displaced Talus location: body Dislocation of right subtalar joint, initial encounter S93.314A Encounter type: initial encounter Neutrophilic leukocytosis D72.828 Hyponatremia with decreased serum osmolality E87.1 Type 2 diabetes mellitus with hyperglycemia, without long-term current use of insulin E11.65 Diabetes mellitus assisted insulin use: without terminal operator use Hypomagnesemia E83.42 (1) Open fracture of right talus Encounter type: initial encounter Fracture alignment: displaced Talus location: body Qualified Code(s): S92.121B - Displaced fracture of body of right talus, initial encounter for open fracture (2) Dislocation of right subtalar joint Encounter type: initial encounter Qualified Code(s): S93.314A - Dislocation of tarsal joint of right foot, initial encounter (5) Type 2 diabetes mellitus with hyperglycemia Diabetes mellitus terminal operator insulin use: without terminal operator use Qualified Code(s): E11.65 - Type 2 diabetes mellitus with hyperglycemia
[2025-02-07 07:58] LABS: Alanine Aminotransferase 16.0 U/L (7-52); Albumin Globulin Ratio 1.7 (0.9-2); Albumin Level 4.0 gm/dl (3.4-5.0); Alkaline Phosphatase 54.0 U/L (34-104); Anion Gap 8.0 (3-11); Bilirubin,Total 0.4 mg/dl (0.2-1.0); Blood Urea Nitrogen 15.0 mg/dl (6-23); Calcium 8.2 mg/dl (8.6-10.3); Carbon Dioxide 25.0 mmol/L (21-32); Chloride 97.0 mmol/L (98-107); Cholesterol 115.0 mg/dl (0-200); Creatinine Clr Calc Pharmacy 78.6 ml/min; Globulin 2.3 gm/dl (2.5-4.0); Glucose 204.0 mg/dl (70-99(Fasting)); HDL Cholesterol 61.0 mg/dl; Magnesium 1.6 mg/dl (1.7-2.4); Potassium 4.4 mmol/L (3.5-5.1); Sodium 130.0 mmol/L (136-145); Total Protein 6.3 gm/dl (6.0-8.3); Triglycerides 50.0 mg/dl (0-150)
--- NOTE | 2025-02-07 08:11 | Fluoroscopy Report ---
FL ankle RT 2V CLINICAL HISTORY: R ANKLE SUBTALAR COMPARISON STUDY: 02/07/2024 FLUOROSCOPY TIME: 7 seconds FLUOROSCOPY IMAGES: 3 EXPOSURE DOSE: 0.2 mGy FINDINGS: Fluoroscopy was provided for subtalar reduction. IMPRESSION: Fluoroscopy for reduction. ACT 112: Negative or not required by law. Electronically signed by: Navid Garnica M.D. 02/07/2025 8:10 AM
[2025-02-07 08:12] LABS: Thyroid Stimulating Hormone 0.71 uIu/ml (0.300-4.500)
[2025-02-07] MEDS: CHOLECALCIFEROL 25 MCG (1000 UNITS) TAB PO SCH (09:01)
[2025-02-07] MEDS: ADVANCED PROBIOTIC 625 MG CAPSULE PO SCH (09:01)
[2025-02-07] MEDS: ROSUVASTATIN CALCIUM 5 MG TAB PO SCH (09:02)
[2025-02-07] MEDS ORDERED: HYDROmorphone INJ 0.5 MG/0.5 ML SYR IV PRN (17:14)
[2025-02-07] MEDS ORDERED: GLUCAGON FOR INJ 1 MG VIAL SQ PRN (17:20)
[2025-02-07] MEDS ORDERED: PHARMACY GLYCEMIC MGMT CONSULT PRN (17:20)
[2025-02-07] MEDS ORDERED: GLUCOSE 10 TAB/TUBE PO PRN (17:20)
[2025-02-07] MEDS ORDERED: CARBOHYDRATES FOR HYPOGLYCEMIA PO PRN (17:20)
[2025-02-07] MEDS ORDERED: GLUCOSE 40% GEL 15 GM TUBE PO PRN (17:20)
[2025-02-07] MEDS ORDERED: DEXTROSE 50% 50 ML SYRINGE IV PRN (17:20)
[2025-02-07] MEDS: ACETAMINOPHEN 1,000 MG/100 ML VIAL IV SCH (19:02)
[2025-02-07] MEDS: INSULIN ASPART PER UNIT CHARGE SC SCH (19:02)
[2025-02-07] MEDS: KETOROLAC TROMETHAMINE 15 MG/ML VIAL IV SCH (19:03)
[2025-02-07 19:22] VITALS: RESP 18
--- NOTE | 2025-02-07 20:08 | Pharmacy Report ---
Pharmacy Glycemic Short Note 2 - Date of Service February 07, 2025 - Glycemic Short BSG Results (Last 24 hours): 02/06/25 02/07/25 02/07/25 20:18 05:53 08:01 Glucose 204 H POC Glucose 237 H 181 H 02/07/25 11:49 Glucose POC Glucose 170 H OUTPATIENT ANTIDIABETIC REGIMEN: * metformin 1000mg qAM, 500mg with dinner HbA1C: 7% ASSESSMENT: * Pt is a 69 year old female POD #1 open reduction and washout of open subtalar joint fracture. History of DM2 on metformin at home. Pharmacy consulted to assist with glycemic management. * BSGs 181-170mg/dl. Diet ordered. Pt received 8mg IV dexamethasone X 1 in the OR yesterday. * Will begin Novolog moderate-severe stress scale, CF: 35mg/dl/unit, CR: 13gm/unit. Hold basal for now. PLAN FOR INPATIENT GLYCEMIC CONTROL: * Hold outpatient oral diabetes medications * Basal insulin * hold * Bolus insulin * NovoLog per scale ACHS or Q6hrs while NPO * Goal Range: Low 110 mg/dL - High 140 mg/dL * Correction Factor: 35 mg/dL/unit * Nutritional / Prandial insulin per carb ratio of 1 unit per 13 grams CHO consumed
[2025-02-07] MEDS ORDERED: LANTUS PER UNIT CHARGE SQ SCH (21:00)
--- NOTE | 2025-02-07 21:31 | Podiatry Progress Note ---
Date of Service February 07, 2025 Assessment & Plan (1) Dislocation of right subtalar joint: (2) Open fracture of right talus: Plan Patient was examined and evaluated perioperatively. We discussed at length etiology and treatment of this right foot fracture dislocation. - Currently she has no open wound, but a surgical site primarily closed to access and assess the STJ. - This should heal over the next two weeks primarily. - Would benefit from CAM boot fitting to act as a removable splint/cast; she will need to remain NWB for 4-6 weeks acting as though this is a cast. - With the small associated fractures, she may simply require this immobilization rather than any further sugical intervention. - Will change her dressing tomorrow and apply the CAM boot; she will be suitable for discharge afterwards, as long as her shoulder pain remains stable. Admission and Anticipated Discharge Date Admission Date: February 06, 2025 Subjective Patient seen at bedside at lunchtime. States pain has improved, but was significant postoperatively. States most of her pain is to the shoulder. Her leg pain has been consistent with cramping of the leg rather than any foot and ankle pain. She has been able to keep off of it but with difficulty. She has had some bleeding to the dressing which has been bolstered by nursing. She denies any signs or symptoms of infection. Review of Systems Constitutional: no fever, no chills and no fatigue Eyes: no problem reported Ear, Nose, Mouth, Throat: no problem reported Respiratory: no problem reported Cardiovascular: + edema; no problem reported Gastrointestinal: + nausea; no vomiting and no problem rep orted Genitourinary: no problem reported Musculoskeletal: + deformity and + limited range of motio n; no problem reported Integumentary: + wounds Neurologic: + loss of sensation, + numbness and + pa resthesia; no generalized weakness Psychiatric: no problem reported Physical Exam Physical Exam: Right lower extremity focused exam: DP/PT pulses 2/4. CFT is brisk to the digits. Foot inversion is reduced at the STJ/TNJ as noted on CT scan with anatomic reduction achieved. This is maintained clinically at this time. Dressing has bleeding strikethrough laterally and posteriorly. No cellulitis appreciated. Constitutional: WD/WN, vitals as above + ill appearing and + obese Eyes: PERRL, conjunctivae normal, anicteric sclerae ENMT: external ear and nose normal, oropharynx normal Neck: trachea midline, no thyromegaly normal visual inspection Respiratory: normal respiratory effort; no respiratory distress Cardiovascular: Rate/Rhythm: regular rate and regular rhythm Vessels: posterior tibial pulses present and dorsalis pedis pulses present Chest (Breasts): Chest: normal inspection of chest Gastrointestinal (Abdomen): Inspection/Auscultation: abdomen normal to inspection Percussion/Palpation: + abdomen tender and abdomen soft Musculoskeletal: no cyanosis or clubbing, extremities motor strength 5/5 Head/Neck/Chest: normocephalic and head atraumatic Extremities: extremities normal to inspection Ankle: + deformity (Inversion and slight plantarflexion of the foot are noted, At the STJ) Neurologic: awake; no focal motor deficits Psychiatric: A+Ox3, euthymic affect Results & Data Results & Data Vital Signs (Past 12 Hours) Vital Signs Temp Pulse Pulse Resp BP Pulse Ox O2 Del Method 02/07/25 19:40 Room Air 02/07/25 19:21 36.8 C 89 18 149/85 H 95 Room Air 02/07/25 15:30 36.8 C 85 16 111/70 93 Room Air 02/07/25 14:00 93 H 02/07/25 10:41 37.1 C 87 16 112/71 97 Nasal Cannula O2 Flow Rate 02/07/25 19:40 02/07/25 19:21 02/07/25 15:30 02/07/25 14:00 02/07/25 10:41 1 (1) Dislocation of right subtalar joint Encounter type: initial encounter Qualified Code(s): S93.314A - Dislocation of tarsal joint of right foot, initial encounter (2) Open fracture of right talus Encounter type: initial encounter Talus location: body Fracture alignment: displaced Qualified Code(s): S92.121B - Displaced fracture of body of right talus, initial encounter for open fracture
[2025-02-07] MEDS: GABAPENTIN 300 MG CAP PO STA (23:16)
[2025-02-08 06:14] LABS: Hematocrit (blood only) 28.8 % (37.0-47.0); Hemoglobin 9.8 g/dl (12.0-16.0); Mean Corpuscular Hemoglobin 29.2 pg (25.0-34.0); Mean Corpuscular Volume 85.7 fL (80.0-100.0); Platelet Count 240 K/uL (130-400); RDW Standard Deviation 46.4 fL (36.4-46.3); Red Blood Count 3.36 M/uL (4.20-5.40); White Blood Count 10.41 K/ul (4.8-10.8)
[2025-02-08 06:34] LABS: Albumin Level 3.8 gm/dl (3.4-5.0); Anion Gap 6.0 (3-11); Blood Urea Nitrogen 15.0 mg/dl (6-23); Calcium 8.5 mg/dl (8.6-10.3); Carbon Dioxide 27.0 mmol/L (21-32); Chloride 104.0 mmol/L (98-107); Creatinine Clr Calc Pharmacy 66.5 ml/min; Glucose 131.0 mg/dl (70-99(Fasting)); Potassium 4.3 mmol/L (3.5-5.1); Sodium 137.0 mmol/L (136-145)
--- NOTE | 2025-02-08 06:59 | Hospitalist Progress Note ---
Date of Service February 08, 2025 Assessment & Plan (1) Open fracture of right talus: (2) Dislocation of right subtalar joint: (3) Neutrophilic leukocytosis: (4) Hyponatremia with decreased serum osmolality: (5) Type 2 diabetes mellitus with hyperglycemia: (6) Hypomagnesemia: Plan In summary this is a 69-year-old female who presents after a mechanical fall resulting in right talar open fracture with dislocation of the subtalar joint who underwent open reduction and washout with podiatry on 02/06 emergently #Subtalar dislocation with open fracture of right talus s/p open reduction and washout on 01/06 // Osteoporosis Podiatry plans for no further surgical intervention at this time, hopeful for routine healing without additional intervention; anticipate CAM boot placement on 02/08 with further recommendations to come Continue acetaminophen 1000 mg po every 8 hours scheduled for 24 hours, transition to p.o. thereafter Continue ketorolac 30 mg IV every 6 hours scheduled through 02/11 or upon discharge, whichever occurs first Continue hydromorphone 0.5 mg IV every 3 hours as needed for severe breakthrough pain; has not needed at this time Podiatry consulted #Euvolemic hyponatremia Resolved #Type II Diabetes mellitus with hyperglycemia Most recent hemoglobin A1c of 7.0% obtained 02/07; glycemic target of preprandial less than 140 and random checks less than 180; we will withhold the patient's home medication regimen during hospitalization - Continue insulin glargine 6 U subcutaneously twice daily - Continue insulin aspart with correction factor 75 mg/dL/unit and carbohydrate ratio 24 g/unit Admission and Anticipated Discharge Date Admission Date: February 06, 2025 Subjective Ms. Hylton is a 69-year-old female whose active medical conditions include type II diabetes mellitus with hyperglycemia, age-related osteoporosis, idiopathic peripheral neuropathy who presented to the [facility] on 02/06 after a mechanical fall resulting in an open right talar fracture and subtalar dislocation requiring emergent surgical intervention provided by podiatry with open reduction and washout. She remains admitted for continued care and observation. No acute overnight events Results & Data Results & Data Vital Signs (Past 12 Hours) Vital Signs Temp Pulse Pulse Resp BP Pulse Ox O2 Del Method 02/08/25 04:24 36.3 C L 76 18 153/66 H 96 Nasal Cannula 02/08/25 03:50 36.3 C L 93 H 18 123/82 97 Room Air 02/07/25 23:27 37 C 90 18 116/73 95 Room Air 02/07/25 21:54 88 02/07/25 19:40 Room Air 02/07/25 19:21 36.8 C 89 18 149/85 H 95 Room Air PG Care Time/CCT Total # of Minutes Spent Total Time Spent with Patient: Total time spent is greater than 50% in coordination of care (as documented) at patient's floor/unit and/or counseling patient: Coding Diagnoses Open displaced fracture of body of right talus, initial encounter S92.121B Encounter type: initial encounter Talus location: body Fracture alignment: displaced Dislocation of right subtalar joint, initial encounter S93.314A Encounter type: initial encounter Neutrophilic leukocytosis D72.828 Hyponatremia with decreased serum osmolality E87.1 Type 2 diabetes mellitus with hyperglycemia, without long-term current use of insulin E11.65 Diabetes mellitus prison insulin use: without terminal press operator use Hypomagnesemia E83.42 (1) Open fracture of right talus Encounter type: initial encounter Talus location: body Fracture alignment: displaced Qualified Code(s): S92.121B - Displaced fracture of body of right talus, initial encounter for open fracture (2) Dislocation of right subtalar joint Encounter type: initial encounter Qualified Code(s): S93.314A - Dislocation of tarsal joint of right foot, initial encounter (5) Type 2 diabetes mellitus with hyperglycemia Diabetes mellitus terminal press operator insulin use: without prison use Qualified Code(s): E11.65 - Type 2 diabetes mellitus with hyperglycemia
[2025-02-08 07:17] VITALS: TEMP 98.6; O2SAT 95
[2025-02-08 07:18] VITALS: BP 129/74
--- NOTE | 2025-02-08 12:40 | Podiatry Progress Note ---
Date of Service February 08, 2025 Assessment & Plan (1) Dislocation of right subtalar joint: (2) Open fracture of right talus: Plan Patient was examined and evaluated perioperatively. We discussed at length etiology and treatment of this right foot fracture dislocation. - Currently she has no open wound, but a surgical site primarily closed to access and assess the STJ. - This should heal over the next two weeks primarily. - Surgical dressing removed, redressed with Lopez compression dressing. - Fit into CAM boot. Encouraged to work her foot and heel as deep seated into the boot as possible. - Will remain NWB for 4-6 weeks in this boot. If it is too bulky, we will put her into a posterior splint tomorrow or early next week outpatient.\ - Ok to discharge home. Would benefit from short course of gabapentin on discharge to continue to improve her nerve pain. Admission and Anticipated Discharge Date Admission Date: February 06, 2025 Subjective Seen at bedside. Eating lunch. Main concern is her nerve pain to the leg. Gabapentin has helped on this admission. Denies pain to the foot/ankle. Review of Systems Constitutional: no fever, no chills and no fatigue Eyes: no problem reported Ear, Nose, Mouth, Throat: no problem reported Respiratory: no problem reported Cardiovascular: + edema; no problem reported Gastrointestinal: + nausea; no vomiting and no problem rep orted Genitourinary: no problem reported Musculoskeletal: + deformity and + limited range of motio n; no problem reported Integumentary: + wounds Neurologic: + loss of sensation, + numbness and + pa resthesia; no generalized weakness Psychiatric: no problem reported Physical Exam Physical Exam: Right lower extremity focused exam: DP/PT pulses 2/4. CFT is brisk to the digits. Foot inversion is reduced at the STJ/TNJ as noted on CT scan with anatomic reduction achieved. This is maintained clinically at this time. No active bleeding to the surgical site/skin abrasion. Reduced position maintained, though foot remains unstable. Constitutional: WD/WN, vitals as above + ill appearing and + obese Eyes: PERRL, conjunctivae normal, anicteric sclerae ENMT: external ear and nose normal, oropharynx normal Neck: trachea midline, no thyromegaly normal visual inspection Respiratory: normal respiratory effort; no respiratory distress Cardiovascular: Rate/Rhythm: regular rate and regular rhythm Vessels: posterior tibial pulses present and dorsalis pedis pulses present Chest (Breasts): Chest: normal inspection of chest Gastrointestinal (Abdomen): Inspection/Auscultation: abdomen normal to inspection Percussion/Palpation: + abdomen tender and abdomen soft Musculoskeletal: no cyanosis or clubbing, extremities motor strength 5/5 Head/Neck/Chest: normocephalic and head atraumatic Extremities: extremities normal to inspection Ankle: + deformity (Inversion and slight plantarflexion of the foot are noted, At the STJ) Neurologic: awake; no focal motor deficits Psychiatric: A+Ox3, euthymic affect Results & Data Results & Data Vital Signs (Past 12 Hours) Vital Signs Temp Pulse Pulse Resp BP Pulse Ox O2 Del Method 02/08/25 07:25 81 02/08/25 07:16 37.0 C 85 18 129/74 95 Room Air 02/08/25 04:24 36.3 C L 76 18 153/66 H 96 Nasal Cannula 02/08/25 03:50 36.3 C L 93 H 18 123/82 97 Room Air (1) Dislocation of right subtalar joint Encounter type: initial encounter Qualified Code(s): S93.314A - Dislocation of tarsal joint of right foot, initial encounter (2) Open fracture of right talus Encounter type: initial encounter Talus location: body Fracture alignment: displaced Qualified Code(s): S92.121B - Displaced fracture of body of right t alus, initial encounter for open fracture
[2025-02-08 14:19] VITALS: PULSE 101
--- NOTE | 2025-02-08 17:06 | Discharge Summary ---
Discharge Summary Date of Service February 08, 2025 Principal Dx & Hospital Course #1 = Principal Diagnosis (1) Open fracture of right talus: (2) Dislocation of right subtalar joint: (3) Hyponatremia with decreased serum osmolality: Plan In summary this is a 69-year-old female who presents after a mechanical fall resulting in right talar open fracture with dislocation of the subtalar joint who underwent open reduction and washout with podiatry on 02/06 emergently #Subtalar dislocation with open fracture of right talus s/p open reduction and washout on 01/06 // Osteoporosis Podiatry plans for no further surgical intervention at this time, hopeful for routine healing without additional intervention; CAM boot placed on 02/08, to remain nonweight bearing for 4-6 weeks and follow in the outpatient setting Continue acetaminophen 1000 mg po every 8 hours scheduled #Euvolemic hyponatremia Resolved; likely SIADH from significant pain Admission HPI Per Admitting Provider This is a pleasant 69-year-old female who was on [facility] today at the [facility] the parking deck. She was coming down the steps. She did not see the last step and over stepped and fell to the ground. Complaining of significant right foot pain was brought to the ER for further evaluation and treatment. CT of the foot demonstrated the above injuries. Emergent consultation with podiatry took place. The patient was taken straight to the OR for reduction of dislocation and reduction of fractures. We were contacted podiatry to entertain admission at least for overnight for observation given the postoperative nature of the patient. In the ER she also had ankle x-rays. She denies hitting her head. The only other pain she has in her is in her right shoulder her right elbow and right arm. We have ordered x-rays of these regions at the time of this dictation. We evaluated the patient in the PACU postoperatively. Again we were not notified of this patient preoperatively/in the ER. Discharge Exam General: Adult female in no acute distress Vital Signs: Reviewed HEENT: Moist mucous membranes Pulmonary: Symmetric chest wall excursion without restriction; clear to auscultation bilaterally Cardiovascular: Regular rate and rhythm without murmurs, rubs, or gallops; right radial pulse 2+; brisk capillary refill in the right lower extremity nailbeds Neurologic: Sensation intact to light touch involving the right lower extremity phalanges Discharge Plan Discharge Items Patient Disposition: Home - Home Health Services Reason For Visit: TALAR FX Discharge Diagnosis: Right open talar fracture with subtalar dislocation requiring emergent open reduction and washout Condition on Discharge: Good Activity: Per Instructions section Non-emergency contact: Primary Care Provider and Specialist Call non-emergency contact if: you have any medication questions, your symptoms worsen and your pain is not controlled Follow-up/Referrals: Lance Aguilar DPM [Physician] - (Hospital follow up) Sadie Corona DO [Primary Care Provider] - (Please call your primary care provider to schedule a hospital follow-up appointment within 7-10 days) Diet: Regular Fluids: 2000ml (8 cups) Addtl Attending Provider Instructions: Right talar fracture subtalar dislocation requiring emergent surgical reduction and washout. Postoperatively, with further evaluation by podiatry they do not anticipate further need for surgical intervention. The patient supine. Healing. You were fitted into a cam boot by podiatry on the day of discharge and recommend that he remain nonweightbearing for significant significant improvement, to be determined further upon follow-up in the outpatient setting. 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 Pending Studies at Discharge: No Stand-Alone Forms: My [facility] So[facility] Medications and DC Order Prescriptions: New gabapentin 300 mg capsule 300 mg PO BID 21 Days Qty: 42 0RF Continued duloxetine 30 mg capsule,delayed release(DR/EC) 60 mg PO DAILY metformin 500 mg tablet extended release 24 hr 500 mg PO TID Adult 50 Plus Probiotic 4 billion cell capsule 4,000 mmu cells PO DAILY Qty: 30 0RF Rx Instructions: administer with a meal alpha lipoic acid 300 mg capsule 300 mg PO BID alendronate 70 mg tablet See Rx Instructions PO .COMPLEX Rx Instructions: orally once weekly; cholecalciferol (vitamin D3) 100 mcg (4,000 unit) tablet 100 mcg PO DAILY loratadine [Claritin] 10 mg tablet 10 mg PO DAILY PRN (Reason: Allergic Symptoms) rosuvastatin 5 mg tablet 5 mg PO DAILY lisinopril 2.5 mg tablet 2.5 mg PO DAILY Krames/Other Patient Handouts: Gabapentin Oral Capsule, Type 2 Diabetes Admission Data Admit Date/Time: 02/06/25 17:45 Attending Provider: José Miguel Esparza Admit Provider: Steven Caceres Primary Care Provider: Sadie Corona Other Providers: Lance Aguilar Other Interventions: Discharge Summary Assessment (RN) Last Done: 02/08/25 13:07 Hospital Stay Data Consultations 02/06/25 12:54 Consult Podiatry Stat Procedures Performed Operation Date: 02/06/25 15:25 Actual Procedures p Right Foot and Ankle Open Reduction and Washout of Subtalar and Talonavicular Fracture Dislocation(Right) - Lance Aguilar DPM Diagnostic Imagining Performed 02/06/25 FL ankle RT 2V Routine 02/06/25 12:13 CT foot RT wo con Stat 02/06/25 17:34 CT foot RT wo con Routine Pending Results Patient Have Any Pending Studies at Discharge: No Discharge Instructions Given to Patient (Per Discharging Provider) Right talar fracture subtalar dislocation requiring emergent surgical reduction and washout. Postoperatively, with further evaluation by podiatry they do not anticipate further need for surgical intervention. The patient supine. Healing. You were fitted into a cam boot by podiatry on the day of discharge and recommend that he remain nonweightbearing for significant significant improvement, to be determined further upon follow-up in the outpatient setting. 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 Total Time Total Time Spent Total Time Spent (In Minutes): I personally spent 60 minutes in the coordination of today's discharge including bedside counseling, physical exam, medication reconciliation, coordination of DME with podiatry and case management Coding Level of Care Code 05503 INP/OBS DISCH >30 MIN Diagnoses Open displaced fracture of body of right talus, initial encounter S92.121B Encounter type: initial encounter Talus location: body Fracture alignment: displaced Dislocation of right subtalar joint, initial encounter S93.314A Encounter type: initial encounter Hyponatremia with decreased serum osmolality E87.1 Home Health Attestation I certify that this patient is under my care and that I, or a physicians speech pathologist assistant working with me, had a face to-face encounter that meets the [id number] encounter requirements with this patient. The encounter with the patient was in whole, or in part, for the following medical condition, which is the primary reason for home health care (list medical condition): I certify that, based on my findings, the following services are medically necessary home health services: My clinical findings support the need for the above services because: Further, I certify that my clinical findings support that this patient is homebound (i.e. absences from home require considerable and taxing effort and are for medical reasons or church services or infrequently or of short duration when for other reasons) because: Certification for Home Health Services: Based on the above findings, I certify that this patient is confined to the home and needs intermittent penitentiary care, physical therapy and/or speech therapy or continues to need occupational therapy. The patient is under my care, and I have initiated the establishment of the plan of care. This patient will be followed by a physician who will periodically review the plan of care.
--- NOTE | 2025-03-05 07:06 | Operative Report ---
Post Operative Report Pre & Post Diagnosis Operation Date: 02/06/25 15:25 Pre-Op Diagnosis: Dislocation of right subtalar joint, open fracture of right talus Post-Op Diagnosis: Dislocation of right subtalar joint, open fracture of right talus I identified the patient and participated in the time-out.: Yes Procedure Operation Date: 02/06/25 15:25 Actual Procedures p Right Foot and Ankle Open Reduction and Washout of Subtalar and Talonavicular Fracture Dislocation(Right) - Lance Aguilar DPM Surgeon Lance Aguilar DPM Lens Mounter None Estimated Blood Loss 10 Findings Consistent with Post-Op Diagnosis Skin was grossly intact over the head of the talus with only scant bleeding from a nearby abrasion. No deep probing noted. No significant pressure necrosis identified. Specimens None Anesthesia Type General Complications none Disposition Accompanied Patient To Recovery: Yes Disposition: Recovery Room Indications Ms Hylton was an emergency department consult who presented s/p fall with a right subtalar joint dislocation. The ED did not feel comfortable close reducing in the ED with the level of deformity noted clinically and radiographically, in addition to suspicion of the fracture being open. We were consulted urgently for this. We discussed preoperative instructions, postoperative instructions, relative risks, and outcomes of this open reduction without internal fixation, as well as the future treatment options, including continued immobilization versus internal fixation. Consent was obtained. All questions were answered. Description of Procedure The patient was brought to the operating room and placed on the operative table in supine position. Following administration of IV anesthesia, local analgesia was obtained utilizing 20 cc of half percent Marcaine plain in an ankle block fashion. The right lower extremity was then scrubbed, prepped, and draped in the usual aseptic manner. Attention was directed to the right rearfoot where the talar head was noted directly underlyikng the skin of the dorsal lateral midfoot. Pulses were palpable to the major arteries of the foot otherwise. A small superficial abrasion was noted and a 4 cm incision was made lateral to this, to identify and drain any hematoma formation. This led to decreased tension on the ski, visually. The talar head was identified after removal of this acute hematoma and noted to be intact without any obvious osteochondral damage to the visualized head. The deformity was gently increased, abducting the foot at the TN joint, then distracted manually, and reduced into a more anatomic position. The foot immediately reduced back into this more anatomic position of the subtalar and talonavicular joints. Fluoroscopy was utilized to confirm anatomic alignment, which was noted, and ensure bony fragments followed the Vassal principal. The incision was then flushed again with copious amounts of sterile saline and closure was performed with 3-0 nylon in a simple interrupted fashion. The incision was dressed with Xeroform gauze, 4 x 4 gauze, Kerlix, and Flo wrap. A modified Lopez compression dressing with well padded posterior splint was then applied. The patient tolerated the procedure well and was transferred to the recovery room with vital signs stable and vascular status intact to the feet. Following postoperative monitoring, she will be transferred back to the floor for continued PT/OT and likely discharge in the next day or so. I attest to the content of the Intraoperative Record and any orders documented therein. Any exceptions are noted below.
--- NOTE | 2025-03-07 11:26 | Coding Query ---
To promote full compliance with coding requirements relating to patient care, physician participation is requested in all cases of correction officer uncertainty. Please assist us with the question(s) below: Coding Question(s): It was noted throughout the record that the patient has/is suspected to have osteoporosis. According to coding guidelines "a code for osteoporotic fracture, and not a traumatic fracture, should be used for any patient with known osteoporosis who suffers a fracture, even if the patient had a minor fall or trauma, if that fall or trauma would not usually break a normal, healthy bone." Please indicate below the type of fracture: Physician's Response(s): ( ) Osteoporotic fracture of (RIGHT TALUS ) ( X ) Traumatic fracture of (RIGHT TALUS) ( ) Other, please specify MTDD
== END 2025-02-08 14:36 | disposition home health service (06) | DRG 504 ==
LOC: ED 11:52 → OR 15:15 → 2W 15:15 → SUATTDRO 17:45